=== PATIENT | male | born 1985 | race American Indian/Alaskan Native ===

== ENCOUNTER 2021-06-03 22:03 | Emergency (ER) | payer SELFPAY ==
[2021-06-03 22:10] VITALS: BP 155/103
[2021-06-03] MEDS ORDERED: oxyCODONE /ACETAMINOPHEN 5-325MG TAB PO ONE (23:33)
--- NOTE | 2021-06-04 00:19 | XRay Report ---
Right foot, 3 views HISTORY: Pain and swelling COMPARISON: None FINDINGS: No acute fracture or malalignment. Lisfranc interval is preserved. 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 Mild soft tissue swelling of the dorsum of the forefoot, nonspecific. Signer Name: Yury Hart MD Signed: 06/04/2021 12:15 AM Workstation Name: [id number]
--- NOTE | 2021-06-04 00:41 | Emergency Department Report ---
ED Lower Extremity HPI - General Chief Complaint: Extremity Injury, Lower Stated Complaint: FOOT PAIN Time Seen by Provider: 06/03/21 23:33 Source: patient Mode of arrival: Ambulatory Limitations: No Limitations - History of Present Illness Initial Comments: 35-year-old male presents emerge department complaining of pain to his right foot after a box fell at work resulting in a crush type injury he reports some continued pain and swelling to the area which is continued to worsen since the onset a couple days ago. Pain is dull and throbbing worse with palpation range of motion and ambulation. No broken skin no discharge no deformity MD Complaint: foot injury -: Gradual Injury: Foot: Right Type of Injury: blunt Severity: mild Improves With: nothing Worsens With: nothing Context: direct blow Associated Symptoms: swelling, able to partially bear weight. denies: unable to bear weight, ambulatory - Related Data Previous Rx's Medication Instructions Recorded Last Taken Type Ondansetron [Zofran Odt] 4 mg PO Q8H #10 tab.rapdis 11/18/15 Unknown Rx Ketorolac [Toradol] 10 mg PO Q6H PRN #14 tablet 06/04/21 Unknown Rx Allergies Allergy/AdvReac Type Severity Reaction Status Date / Time No Known Allergies Allergy Verified 06/03/21 22:09 ED Review of Systems ROS: Stated complaint: FOOT PAIN Other details as noted in HPI Comment: All other systems reviewed and negative ED Past Medical Hx - Past Medical History Previous Medical History?: No - Surgical History Past Surgical History?: No - Social History Smoking Status: Never Smoker Substance Use Type: Alcohol - Medications Home Medications: Home Medications Medication Instructions Recorded Confirmed Last Taken Type Ondansetron [Zofran Odt] 4 mg PO Q8H #10 tab.rapdis 11/18/15 Unknown Rx Ketorolac [Toradol] 10 mg PO Q6H PRN #14 tablet 06/04/21 Unknown Rx ED Physical Exam - General Limitations: No Limitations General appearance: alert, in no apparent distress - Head Head exam: Present: atraumatic, normocephalic - Eye Eye exam: Present: normal appearance, PERRL, EOMI Pupils: Present: normal accommodation - ENT ENT exam: Present: normal exam, normal orophraynx, mucous membranes moist, TM's normal bilaterally - Neck Neck exam: Present: normal inspection, full ROM - Respiratory Respiratory exam: Present: normal lung sounds bilaterally. Absent: respiratory distress - Cardiovascular Cardiovascular Exam: Present: regular rate, normal rhythm. Absent: systolic murmur, diastolic murmur, rubs, gallop - GI/Abdominal GI/Abdominal exam: Present: soft, normal bowel sounds - Rectal Rectal exam: Present: deferred - Extremities Exam Extremities exam: Present: normal inspection - Back Exam Back exam: Present: normal inspection. Absent: CVA tenderness (R), CVA tenderness (L) - Neurological Exam Neurological exam: Present: alert, oriented X3, CN II-XII intact - Psychiatric Psychiatric exam: Present: normal affect, normal mood. Absent: anxious, flat affect - Skin Skin exam: Present: warm, dry, intact, normal color. Absent: rash ED Course Vital Signs 06/03/21 22:05 Temperature 98.4 F Pulse Rate 79 Respiratory 17 Rate Blood Pressure 155/103 [Right] O2 Sat by Pulse 98 Oximetry ED Lower Extremity MDM - Radiology Data Radiology results: report reviewed [facility] [address] [place] [address] XRay Report Signed Patient: MERCEDES LAURENT MR#: [id number] : 1985 Acct:[id number] Age/Sex: 35 / M ADM Date: 06/03/21 Loc: ED Attending Dr: Ordering Physician: ABISAI GORE Date of Service: 06/03/21 Procedure(s): XR foot 3+V RT Accession Number(s): [id number] cc: ABISAI GORE Fluoro Time In Minutes: Right foot, 3 views HISTORY: Pain and swelling COMPARISON: None FINDINGS: No acute fracture or malalignment. Lisfranc interval is preserved. Minimal osteoarthritis of the first MTP joint. Mild soft tissue swelling of the dorsum of the forefoot, nonspecific. Signer Name: Kait Hart MD Signed: 06/04/2021 12:15 AM Workstation Name: [id number] Transcribed By: GAYLE Dictated By: KAIT HART MD Electronically Authenticated By: KAIT HART MD Signed Date/Time: 06/04/2114 DD/ TD/TT: - Medical Decision Making 35-year-old male status post crush injury to the right foot by a box at work resulting in a contusion/crush trauma. No evidence of any fracture to the x-ray but does have some issues with ambulation with antalgic gait due to the pain. Plan we will place him on crutches and a postop shoe per his request with strict instructions on ice therapy anti-inflammatories for pain. Critical care attestation.: If time is entered above; I have spent that time in minutes in the direct care of this critically ill patient, excluding procedure time. ED Disposition Clinical Impression: Crush injury of foot Disposition: 01 HOME / SELF CARE / HOMELESS Is pt being admited?: No Does the pt Need Aspirin: No Condition: Stable Instructions: Crush Injury of the Foot, How to Use Cold Therapy Prescriptions: Ketorolac [Toradol] 10 mg PO Q6H PRN #14 tablet PRN Reason: Pain Referrals: ACE MARIA MD [Staff Physician] - 3-5 Days
== END 2021-06-04 02:05 | disposition home or self-care (01) ==
LOC: ED 22:03
DX: S97.81XA Crushing injury of right foot, initial encounter (principal); W22.8XXA Striking against or struck by other objects, initial encounter; Y93.89 Activity, other specified; Y92.89 Other specified places as the place of occurrence of the external cause; Y99.8 Other external cause status
CPT/HCPCS: 99283

== ENCOUNTER 2021-06-09 08:04 | Emergency (ER) | payer SELFPAY ==
[2021-06-09 08:22] VITALS: BP 174/108
--- NOTE | 2021-06-09 08:37 | Emergency Department Report ---
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 Patient is in a postop shoe and is ambulating without difficulties. He comes in stating that it swollen. Patient states that the Toradol that was given to him on the eighth felt that it made him dizzy. Patient denies any nausea vomiting. States he has not made an appointment for follow-up. MD Complaint: foot injury Onset/Timin -: days(s) Injury: Foot: Right Type of Injury: other (Crush) Place: work Severity scale (0 -10): 5 Improves With: immobilization Worsens With: weight bearing, palpation Associated Symptoms: swelling - Related Data Previous Rx's Medication Instructions Recorded Last Taken Type Ondansetron [Zofran Odt] 4 mg PO Q8H #10 tab.rapdis 11/18/15 Unknown Rx Ketorolac [Toradol] 10 mg PO Q6H PRN #14 tablet 06/04/21 Unknown Rx Allergies Allergy/AdvReac Type Severity Reaction Status Date / Time No Known Allergies Allergy Verified 06/09/21 08:21 ED Review of Systems ROS: Stated complaint: FOOT INJURY, DIZZYNESS Other details as noted in HPI Comment: All other systems reviewed and negative ED Past Medical Hx - Social History Smoking Status: Never Smoker Substance Use Type: Alcohol - Medications Home Medications: Home Medications Medication Instructions Recorded Confirmed Last Taken Type Ondansetron [Zofran Odt] 4 mg PO Q8H #10 tab.rapdis 11/18/15 Unknown Rx Ketorolac [Toradol] 10 mg PO Q6H PRN #14 tablet 06/04/21 Unknown Rx ED Physical Exam - General Limitations: No Limitations General appearance: alert, in no apparent distress - Head Head exam: Present: atraumatic, normocephalic - Eye Eye exam: Present: normal appearance - ENT ENT exam: Present: mucous membranes moist, normal external ear exam - Neck Neck exam: Present: normal inspection, full ROM - Respiratory Respiratory exam: Absent: respiratory distress, accessory muscle use - Cardiovascular Cardiovascular Exam: Present: regular rate - Extremities Exam Extremities exam: Present: normal inspection, full ROM - Back Exam Back exam: Present: normal inspection - Neurological Exam Neurological exam: Present: alert, oriented X3, normal gait - Psychiatric Psychiatric exam: Present: normal affect, normal mood - Skin Skin exam: Present: warm, dry, intact, normal color. Absent: rash ED Course Vital Signs 06/09/21 08:21 Temperature 97.6 F Pulse Rate 85 Respiratory 18 Rate Blood Pressure 174/108 [Left] O2 Sat by Pulse 100 Oximetry ED Lower Extremity MDM - Medical Decision Making 35-year-old -Citizen Of [place] male presents to the emergency room complaining of right foot that he injured on 06/01/2021 that had negative x-rays on 06/03/2021 and was diagnosed with a crush injury. Patient is in a postop shoe and is ambulating without difficulties. He comes in stating that it swollen. Patient states that the Toradol that was given to him on the eighth felt that it made him dizzy. Patient denies any nausea vomiting. States he has not made an appointment for follow-up. Discussed with patient he needs to continue to elevate his foot place ice on it and follow-up with an orthopedic provider. Patient has a stable neuro exam. Discussed with patient to stop taking Toradol as he feels this may make him dizzy. Patient was only given a few pills. Patient can take [id number] Tylenol ibuprofen for pain management. Critical care attestation.: If time is entered above; I have spent that time in minutes in the direct care of this critically ill patient, excluding procedure time. ED Disposition Clinical Impression: Crush injury of foot, Dizziness, nonspecific Disposition: HOME / SELF CARE / HOMELESS Is pt being admited?: No Does the pt Need Aspirin: No Condition: Stable Instructions: Dizziness, [id number] Additional Instructions: Discontinue Toradol. Take Tylenol ibuprofen as needed for pain. You can place ice and elevate your foot. Follow-up with a primary care provider and orthopedic provider. Referrals: HERACLIO DRIVER MD [Primary Care Provider] - 3-5 Days HOLLY MACHADO MD [Staff Physician] - 3-5 Days EDITH MARIA MD [Referring] - 3-5 Days Forms: Work/School Release Form(ED) Time of Disposition: 08:39
== END 2021-06-09 08:42 | disposition home or self-care (01) ==
LOC: ED 08:04
DX: S97.80XA Crushing injury of unspecified foot, initial encounter (principal); R42 Dizziness and giddiness; X58.XXXA Exposure to other specified factors, initial encounter; Y93.89 Activity, other specified; Y92.89 Other specified places as the place of occurrence of the external cause; Y99.8 Other external cause status
CPT/HCPCS: 99281